=== PATIENT | female | born 1965 | race Caucasian/White ===

== ENCOUNTER 2018-08-02 07:36 | Emergency (ER) | payer MEDICAID ==
[~2018-08-02] VITALS: Ht 160 cm; Wt 60.0 kg
[2018-08-02 07:41] VITALS: Ht 160 cm; Wt 60.0 kg
[2018-08-02] MEDS ORDERED: CEPH-443 PO (10:25)
[2018-08-02] MEDS ORDERED: ELIM TOP (10:25)
[2018-08-02] MEDS ORDERED: SULF1TAB31 PO (10:25)
--- NOTE | 2018-08-02 10:34 | ERD ---
ER Documentation Chief Complaint Chief Complaint SORES ON HAND AND LEGS X 1 MONTH HPI 52-year-old female patient with no significant past medical history presents to the ED stating that she got bitten by a spider on her left upper leg, also accidentally cut herself with a razor in her left lower leg. States that her leg has now become infected, more red. Reports she also has a rash on her left hand. Denies any chest pain, shortness of breath, lips or tongue swelling. Denies any fever, chills, nausea, vomiting, diarrhea, neck stiffness. ROS All systems reviewed and are negative except as per history of present illness. Medications Home Meds Active Scripts Sulfamethoxazole/Trimethoprim* (Bactrim Ds* Tablet) 1 Each Tablet, 1 TAB PO BID, #14 TAB Prov:JUVENAL LAW-Jarad 08/02/18 Cephalexin* (Keflex*) 500 Mg Capsule, 500 MG PO QID for 7 Days, CAP Prov:JUVENAL LAW-C 08/02/18 Permethrin* (Elimite*) 5% Cr, 1 APPLIC TOP ONCE, #1 TUB Prov:JUVENAL LAW-C 08/02/18 PMhx/Soc Medical and Surgical Hx: pt denies Medical Hx, pt denies Surgical Hx Hx Alcohol Use: No Hx Substance Use: No Hx Tobacco Use: No Smoking Status: Never smoker FmHx Family History: No diabetes, No coronary disease Physical Exam Vitals Vital Signs Date Temp Pulse Resp B/P (MAP) Pulse Ox O2 O2 Flow FiO2 Time Delivery Rate 08/02/18 98.1 88 18 135/67 97 07:41 (89) Physical Exam Const: [id number], well-nourished. In no acute distress. Head: Atraumatic, normocephalic Eyes: Normal Conjunctiva without injection ENT: Normal external ear, nose and mouth. Neck: Full range of motion. No meningismus. Resp: Clear to auscultation bilaterally. No wheezing, rhonchi, rales, or crackles. No accessory muscle use. No retractions. Cardio: Regular rate and rhythm, no murmurs Skin: No petechiae or rashes Back: No midline tenderness. No CVA tenderness. Two 2 cm scab-like lesion noted on the left lower leg as well as upper leg with some surrounding erythema. No fluctuance or induration. Serpiginous lesions noted on the left hand. Ext: No cyanosis, or edema. Cap refill less than 2 seconds. Distal pulses intact bilaterally. Neur: Awake and alert. Normal gait and coordination. Muscle strength 5/5. Sensation intact bilaterally. Psych: Normal Mood and Affect Procedures/MDM 52-year-old female patient with no significant past medical history, is homeless presents to the ED complaining of an insect bite to her left upper leg as well as infected wound from a razor blade from her left lower leg. Patient is afebrile and nontoxic-appearing. 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 Please see social research assistant note for details. Patient will be treated for possible MRSA and scabies. Patient will be given a prescription for Bactrim, Keflex, Elimite. Low suspicion for anaphylaxis, scabies, SJS/TEN, TSS, Lyme's Disease, syphilis, RMSF, shingles, disseminated gonorrhea chlamydia, DIC, TTP, ITP, erythema multiforme, sepsis, cellulitis, necrotizing fasciitis, gangrene, meningococcemia, allergic contact dermatitis, urticaria, eczema, tinea infection, or other emergent conditions. Diagnosis: Rash, Skin infection Discharge medications: Bactrim, Keflex, Elimite Follow up with primary care physician in 1-2 days. Instructed patient to return to the ED sooner for any worsening symptoms. Patient's questions were answered. Patient is hemodynamically stable. Patient understood and agreed with discharge plan. Patient discharged stable. Disclaimer: Inadvertent spelling and grammatical errors are likely due to EHR/dictation software use and do not reflect on the overall quality of patient care. Also, please note that the electronic time recorded on this note does not necessarily reflect the actual time of the patient encounter. Departure Diagnosis: Primary Impression: Rash Additional Impression: Skin infection Condition: Stable Patient Instructions: Cellulitis, Scabies Referrals: COMMUNITY CLINICS YOU HAVE RECEIVED A MEDICAL SCREENING EXAM AND THE RESULTS INDICATE THAT YOU DO NOT HAVE A CONDITION THAT REQUIRES URGENT TREATMENT IN THE EMERGENCY DEPARTMENT. FURTHER EVALUATION AND TREATMENT OF YOUR CONDITION CAN WAIT UNTIL YOU ARE SEEN IN YOUR DOCTORS OFFICE WITHIN THE NEXT 1-2 DAYS. IT IS YOUR RESPONSIBILITY TO MAKE AN APPOINTMENT FOR FOLOW-UP CARE. IF YOU HAVE A PRIMARY DOCTOR --you should call your primary doctor and schedule an appointment IF YOU DO NOT HAVE A PRIMARY DOCTOR YOU CAN CALL OUR PHYSICIAN REFERRAL HOTLINE AT IF YOU CAN NOT AFFORD TO SEE A PHYSICIAN YOU CAN CHOSE FROM THE FOLLOWING [facility] [address] [facility] [address] [email or web address] [address] [facility] [address] [facility] [address] [facility] [facility] [address] [facility]. [facility] YOU HAVE RECEIVED A MEDICAL SCREENING EXAM AND THE RESULTS INDICATE THAT YOU DO NOT HAVE A CONDITION THAT REQUIRES URGENT TREATMENT IN THE EMERGENCY DEPARTMENT. FURTHER EVALUATION AND TREATMENT OF YOUR CONDITION CAN WAIT UNTIL YOU ARE SEEN IN YOUR DOCTORS OFFICE WITHIN THE NEXT 1-2 DAYS. IT IS YOUR RESPONSIBILITY TO MAKE AN APPOINTMENT FOR FOLOW-UP CARE. IF YOU HAVE A PRIMARY DOCTOR --you should call your primary doctor and schedule and appointment IF YOU DO NOT HAVE A PRIMARY DOCTOR YOU CAN CALL OUR PHYSICIAN REFERRAL HOTLINE AT . IF YOU CAN NOT AFFORD TO SEE A PHYSICIAN YOU CAN CHOSE FROM THE FOLLOWING [facility]: [facility] [address] [place] [address] [facility] [address] [place] [address] [facility] [address] [place] [address] [facility] URGENT CARE/SPECIALTIES Additional Instructions: Call your primary care doctor TOMORROW for an appointment during the next 2-3 days.See the doctor sooner or return here if your condition worsens before your appointment time. JUVENAL LAW PA-C August 02, 2018 10:34
== END 2018-08-02 10:49 | disposition home or self-care (01) ==
LOC: FTE 07:36
DX: L08.9 Local infection of the skin and subcutaneous tissue, unspecified (principal)
CPT/HCPCS: 99283

== ENCOUNTER 2018-09-24 12:19 | Emergency (ER) | payer MEDICAID, OTHER ==
[~2018-09-24] VITALS: Ht 162.6 cm; Wt 55.0 kg
[~2018-09-24 12:19] MED LIST: CEPH-443 PO; ELIM TOP; SULF1TAB31 PO
[2018-09-24 12:26] VITALS: Ht 162.6 cm; Wt 55.0 kg
[2018-09-24 12:38] VITALS: BP 43/99; PULSE 94; RESP 30
[2018-09-24] MEDS ORDERED: NEOMYC/POLYMYX/BACIT 0.9 GM OINT TOP ONE (13:00)
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
[2018-09-24] MEDS ORDERED: ERYT1OIN6 BOTH EYES (13:02)
== END 2018-09-24 13:25 | disposition home or self-care (01) ==
LOC: E/R 12:19
DX: H57.13 Ocular pain, bilateral (principal); T26.91XA Corrosion of right eye and adnexa, part unspecified, initial encounter; T26.92XA Corrosion of left eye and adnexa, part unspecified, initial encounter; T59.891A Toxic effect of other specified gases, fumes and vapors, accidental (unintentional), initial encounter; X58.XXXA Exposure to other specified factors, initial encounter; Y92.9 Unspecified place or not applicable; Z00.8 Encounter for other general examination
CPT/HCPCS: 99283